=== PATIENT | male | born 1935 | race African-American/Black ===

== ENCOUNTER 2022-04-16 16:05 | Emergency (ER) | payer MEDICAID, MEDICARE, OTHER ==
[~2022-04-16] VITALS: Ht 188 cm; Wt 83.0 kg
[~2022-04-16 16:05] MED LIST: FURO-152 PO; LISI1TAB13
[2022-04-16 16:54] LABS: BASOPHILS % 1.1 % (0.0-2.0); EOSINOPHILS % 2.3 % (0.0-5.0); HEMATOCRIT. 40.8 % (42.0-52.0); HEMOGLOBIN. 13.7 g/dL (14.0-18.0); LYMPHOCYTES % 20.6 % (20.0-50.0); MEAN CORPUSCULAR HEMOGLOBIN 31.6 pg (28.0-32.0); MEAN CORPUSCULAR VOLUME 94.1 fL (80.0-94.0); MEAN PLATELET VOLUME 8.4 fl (7.4-10.4); MONOCYTES % 14.1 % (2.0-8.0); NEUTROPHILS % 61.9 % (40.0-76.0); PLATELET 229 x1000/uL (130-400); RED BLOOD CELL COUNT 4.33 mill/uL (4.7-6.1); RED CELL DISTRIBUTION WIDTH 15.8 % (11.6-14.6)
[2022-04-16 17:03] LABS: CHLORIDE 104 mEq/L (98-107)
[2022-04-16 18:09] VITALS: BP 153/89
== END 2022-04-16 20:31 | disposition left against medical advice (07) ==
LOC: ER 16:05
DX: I49.9 Cardiac arrhythmia, unspecified (principal); I10 Essential (primary) hypertension; Z95.0 Presence of cardiac pacemaker
CPT/HCPCS: 36415; 71045; 80053; 83880; 84484; 85025; 93005; 99285